=== PATIENT | female | born 1955 | race Caucasian/White ===

== ENCOUNTER → 2017-03-18 | Outpatient (CLI) | payer BC | END | disposition home or self-care (01) | LOC: GMAL 10:36 | PROVIDERS: ATTEND Family Medicine | DX: E55.9 Vitamin D deficiency, unspecified (principal) ==

== ENCOUNTER → 2017-09-17 | Outpatient (CLI) | payer BC | LOC: GMAL 13:07 | PROVIDERS: ATTEND Family Medicine | DX: R53.82 Chronic fatigue, unspecified (principal); D51.3 Other dietary vitamin B12 deficiency anemia; I10 Essential (primary) hypertension; E11.9 Type 2 diabetes mellitus without complications; E78.4 Other hyperlipidemia ==

== ENCOUNTER → 2017-09-19 | Outpatient (CLI) | payer BC, OTHER ==
--- NOTE | 2017-09-21 10:45 | MRI ---
EXAM DESCRIPTION: Cervical Spine: MRI. CLINICAL HISTORY: CERVICAL RADICULOPATHY COMPARISON: Cervical TECHNIQUE: Multiplanar MRI, multiple sequences, non-contrast High-field. FINDINGS: C3-4: Minimal disc desiccation. Posterior midline 2 mm disc bulge abutting the cord. Mild canal narrowing. Bilateral neural foraminal are patent. Bilateral facets are negative. C4-5: Disc desiccation and moderate disc space loss. Anterior disc bulging and endplate ridging. Modic type II endplate reactive changes. Anterior disc bulge and endplate ridging. Posterior broad-based disc osteophyte complex bulge 3 mm abutting the cord. Bilateral uncinate spurs narrowing the neural foramina. Minimal arthrosis left facet. C5-6: Disc desiccation and anterior bulging and endplate ridging. Posterior broad-based 3 mm disc osteophyte complex bulge abutting the cord. Borderline stenosis right neural foramina. Moderate narrowing of the left neural foramina. Bilateral mild facet arthrosis. C6-7: Disc desiccation and minimal disc space loss. Anterior disc bulging and endplate ridging. Posterior disc osteophyte complex bulge 2 mm abutting the cord. Moderate canal narrowing. Anterior Modic type II endplate reactive changes. Mild right neural foraminal narrowing. Normal signal in the remaining discs with no bulging. Disc spaces preserved. Canal and neural foramina are patent. Facets are unremarkable at C2-3 and C7-T1. Minimal bilateral arthrosis at T1-2. No scoliosis. Spine is lordotic.. No cord compression or cord edema. Atlantoaxial joint is unremarkable. Base of the cerebellar tonsils is above the foramen magnum. Paravertebral soft tissues negative. Left lobe of the thyroid gland is prominent but no definite nodule.. Vertebral bodies are not compressed at any level. Normal marrow signal in the remaining vertebral bodies and the posterior elements. IMPRESSION: 1. Posterior midline bulge of the desiccated C3-4 disc. 2. Posterior broad-based C4-5 disc osteophyte complex bulge abutting the cord. Moderate spondylosis. 3. Posterior broad-based C5-6 disc osteophyte, complex bulge abutting the cord. Borderline stenosis right neural foramina. Correlate for right C6 radiculopathy. 4. Posterior disc osteophyte complex bulge C6-7 disc abutting the cord. Anterior moderate spondylosis. Electronically signed by: Joseph Cao MD 09/21/2017 10:44 AM CDT
== END ==
LOC: MRI 08:59
PROVIDERS: ATTEND Family Medicine
DX: M50.11 Cervical disc disorder with radiculopathy, high cervical region (principal); M50.121 Cervical disc disorder at C4-C5 level with radiculopathy; M50.122 Cervical disc disorder at C5-C6 level with radiculopathy; M50.123 Cervical disc disorder at C6-C7 level with radiculopathy

== ENCOUNTER 2017-12-14 20:00 | Observation (INO) | payer BC ==
--- NOTE | 2017-12-14 20:18 | ED.PDOC ---
History of Present Illness - General Chief Complaint: Blood Pressure Problem Stated Complaint: high blood pressure reading at home Time Seen by Provider: 12/14/17 20:11 Source: patient Exam Limitations: no limitations - History of Present Illness Initial Comments: Roman Aguilar 62 y/o female stated that she had been having blurry vision since November-seems like its warp wears corrective glasses but vision gets more blurry and also seeing double and daughter noted that sometimes cross eyed 2 x today and felt that getting worse more frequent and also noted blood pressure been elevated.Has history of DM2 and HTN. No slurred speech or dysarthria,weakness of extremities. Timing/Duration: intermittent, other - see hpi Severity: moderate Improving Factors: nothing Worsening Factors: nothing Associated Symptoms: other - diizy episode mild Allergies/Adverse Reactions: Allergies NO KNOWN ALLERGY Allergy (Verified 12/14/17 20:19) Home Medications: Ambulatory Orders Empagliflozin [Jardiance] 12/14/17 Gemfibrozil [Lopid] 12/14/17 Insulin Aspart [Novolog Flexpen] 12/14/17 Insulin Glargine [Lantus Solostar] 12/14/17 Lisinopril [Lisinopril] 12/14/17 Nebivolol HCl [Bystolic] 10 mg PO 12/14/17 Rosuvastatin Calcium [Rosuvastatin Calcium] 12/14/17 Saxagliptin HCl [Onglyza] 12/14/17 hydroCHLOROthiazide [Hydrochlorothiazide] 12/14/17 Review of Systems - Review of Systems Constitutional: States: no symptoms reported EENTM: States: see HPI Respiratory: States: no symptoms reported Cardiology: States: no symptoms reported Gastrointestinal/Abdominal: States: no symptoms reported Genitourinary: States: no symptoms reported Musculoskeletal: States: no symptoms reported Skin: States: no symptoms reported Neurological: States: see HPI Endocrine: States: see HPI Hematologic/Lymphatic: States: no symptoms reported Past Medical History (General) - Patient Medical History Hx Hypertension: Yes Hx Thyroid Disease: Yes Hx Diabetes: Yes Surgical History: other - hysterectomy,thyroidectomy - Social History Hx Alcohol Use: No Hx Substance Use: No Hx Depression: No Hx Physical Abuse: No Hx Emotional Abuse: No - Activities of Daily Living Group Home/Assisted Living (if applicable):: [facility] Family Medical History - Family History Father Hx Cardiac Disease: Yes - dad/brother had UT in their 50's Mother Hx Cardiac Disease: Yes Hx Family Diabetes: Yes Physical Exam - Physical Exam General Appearance: Alert, Comfortable, No apparent distress Eye Exam: bilateral normal Ears, Nose, Throat: hearing grossly normal, normal ENT inspection, normal pharynx Neck: non-tender, full range of motion, supple, normal inspection Respiratory: chest non-tender, lungs clear, normal breath sounds, no respiratory distress Cardiovascular/Chest: normal peripheral pulses, regular rate, rhythm, no gallop , no murmur Peripheral Pulses: radial,right: 2+, radial,left: 2+ Gastrointestinal/Abdominal: normal bowel sounds, non tender, soft, no organomegaly Back Exam: no CVA tenderness, no vertebral tenderness Extremity: normal range of motion, non-tender, no pedal edema, no calf tenderness Neurologic: no motor/sensory deficits, alert, oriented x 3, other - pronator drift negative Skin Exam: normal color, warm/dry Progress - Progress Progress: 12/14/17 20:30 Vital Signs - 8 hr 12/14/17 20:08 Temperature 98.4 F Pulse Rate [ 82 monitor] Respiratory 18 Rate Blood Pressure 164/104 [Left Arm] O2 Sat by Pulse 99 Oximetry - Results/Orders Results/Orders: 12/14/17 20:18 IV Care:Saline Lock per Protoc QSHIFT 12/14/17 20:30 EKG STAT 12/14/17 20:51 URINE CULTURE W/COLONY COUNT Stat Laboratory Results - last 24 hr 12/14/17 12/14/17 20:18 20:51 WBC 7.4 RBC 4.38 Hgb 13.7 Hct 38.9 MCV 88.9 MCH 31.3 H MCHC 35.2 RDW 13.9 Plt Count 244 MPV 8.6 Absolute Neuts (auto) 3.00 Absolute Lymphs (auto) 3.50 H Absolute Monos (auto) 0.40 Absolute Eos (auto) 0.40 Absolute Basos (auto) 0.10 Neutrophils % 40.1 L Lymphocytes % 46.7 Monocytes % 6.0 Eosinophils % 5.5 H Basophils % 1.7 PT 9.3 INR 0.93 PTT (SP) 23.9 Sodium 140 Potassium 2.9 L Chloride 103 Carbon Dioxide 25 Anion Gap 14.9 BUN 28 H Creatinine 1.63 H BUN/Creatinine Ratio 17.2 Random Glucose 193 H Serum Osmolality 290.1 Calcium 10.5 H Magnesium 2.1 Total Bilirubin 0.5 Direct Bilirubin < 0.1 Indirect Bilirubin 0.4 AST 24 ALT 23 Alkaline Phosphatase 67 Creatine Kinase 71 CK-MB (CK-2) 1.4 CK-MB (CK-2) % Not Reportable Troponin I < 0.02 Serum Total Protein 7.8 Albumin 4.3 Urine Color Yellow Urine Appearance Clear Urine pH 5.5 Ur Specific [place] 1.020 Urine Protein Negative Urine Glucose (UA) >=1000 H Urine Ketones Negative Urine Blood Negative Urine Nitrite Negative Urine Bilirubin Negative Urine Urobilinogen 0.2 Ur Leukocyte Esterase Negative Urine RBC 0-1 Urine WBC 30-40 H Ur Epithelial Cells 0-1 Urine Bacteria Rare - EKG/XRAY/CT EKG: Sinus, no ST T wave changes Comments: HR 87 XRAY: chest - no acute abnormalities CT Ordered: Yes - no acute abnormalities Departure - Departure Clinical Impression: Blurring of vision, Double vision with both eyes open, Hypokalemia, Renal insufficiency Diabetes Qualifiers: Diabetes mellitus type: type 2 Diabetes mellitus ocean transportation intermediary insulin use: unspecified ocean transportation intermediary insulin use status Diabetes mellitus complication status: with unspecified complications Qualified Code(s): E11.8 - Type 2 diabetes mellitus with unspecified complications Time of Disposition: 22:56 Disposition: Admit Patient Condition: Fair Departure Forms: Patient Portal Self Enrollment Referrals: Eric Fuller III, MD [Primary Care Provider] - 1-2 Weeks Home Medications: Ambulatory Orders Empagliflozin [Jardiance] 12/14/17 Gemfibrozil [Lopid] 12/14/17 Insulin Aspart [Novolog Flexpen] 12/14/17 Insulin Glargine [Lantus Solostar] 12/14/17 Lisinopril [Lisinopril] 12/14/17 Nebivolol HCl [Bystolic] 10 mg PO 12/14/17 Rosuvastatin Calcium [Rosuvastatin Calcium] 12/14/17 Saxagliptin HCl [Onglyza] 12/14/17 hydroCHLOROthiazide [Hydrochlorothiazide] 12/14/17 Decision To Admit - Decistion To Admit Decision to Admit Reason: Admit from ER Decision to Admit Date: 12/14/17 - D/W Martin Welsh ,ANP/Hospitalist Decision to Admit Time: 22:56
[2017-12-14] MEDS ORDERED: ASPIRIN TABLET 325 MG TAB PO ONE (20:28)
[2017-12-14] MEDS: LABETALOL INJ 5 MG/ML VIAL IV ONE ×2 (20:35→20:47)
--- NOTE | 2017-12-14 21:01 | RAD ---
EXAM DESCRIPTION: Chest,1 View CLINICAL HISTORY: 62 years Female, hbp COMPARISON: None FINDINGS: No consolidation. No pneumothorax. No significant pleural effusion. Small linear density in the left lower lung zone is suggestive of atelectasis or scarring. Cardiomediastinal silhouette is unremarkable. Osseous structures are unremarkable. IMPRESSION: No acute findings. Electronically signed by: Von Spicer MD 12/14/2017 9:00 PM CDT
--- NOTE | 2017-12-14 21:05 | CT ---
EXAM DESCRIPTION: Head CLINICAL HISTORY: double vision COMPARISON: None Available. TECHNIQUE: Multiple helical axial tomographic images were obtained of the head without intravenous contrast. This exam was performed according to our departmental dose-optimization program, which includes automated exposure control, adjustment of the mA and/or kV according to patient size and/or use of iterative reconstruction technique. FINDINGS: There is no acute intracranial hemorrhage. No mass. No midline shift. No ventriculomegaly. Lopez-white matter differentiation is maintained. Paranasal sinuses are clear. Mastoid air cells and middle ear spaces are clear. Orbits and orbital contents are unremarkable. Osseous structures are unremarkable. Surrounding soft tissues are unremarkable. IMPRESSION: No acute intracranial process. Electronically signed by: Von Spicer MD 12/14/2017 9:03 PM CDT
[2017-12-14] MEDS ORDERED: DEXTROSE 50% 25 GM/50 ML SYG IV PRN (23:21)
[2017-12-14] MEDS ORDERED: SODIUM CHLORIDE 0.9% (FLUSH) 10 ML SYG IV PRN (23:21)
[2017-12-14] MEDS ORDERED: GLUCAGON INJ 1 MG VIAL SUBCU PRN (23:21)
[2017-12-14] MEDS ORDERED: ACETAMINOPHEN 325 MG TAB PO PRN (23:21)
[2017-12-14] MEDS ORDERED: POTASSIUM CHLORIDE 20 MEQ TAB PO ONE (23:26)
[2017-12-14] MEDS ORDERED: IV SET AND CAP CHANGE INJ INJ SCH (23:30)
[2017-12-14] MEDS ORDERED: cefTRIAXone SODIUM 1 GM in SODIUM CHL 0.9% 50ML MIN-BAG+ 50 ML IVPB SCH (23:30)
[2017-12-14] MEDS ORDERED: SODIUM CHL 0.9% 50ML MIN-BAG+ 50 ML IVPB ONE (23:50)
[2017-12-14] MEDS ORDERED: cefTRIAXone SODIUM 1 GM VIAL ONE (23:50)
[2017-12-14] MEDS: KCL 20MEQ/0.45% NS 1,000 ML IVS PRN (23:56)
[2017-12-15] MEDS ORDERED: INSULIN LISPRO 100 UNITS/ML PEN SUBCU SCH (07:00)
[2017-12-15] MEDS: KCL 20MEQ/0.45% NS 1,000 ML IVS PRN (09:50)
[2017-12-15] MEDS ORDERED: hydroCHLOROthiazide 12.5 MG CAP PO SCH (10:30)
[2017-12-15] MEDS ORDERED: LISINOPRIL 10 MG TAB PO SCH (10:30)
[2017-12-15] MEDS ORDERED: NEBIVOLOL 2.5 MG TAB PO SCH (10:30)
--- NOTE | 2017-12-15 16:18 | SSS ---
SUPERVISING PHYSICIAN: Uri Drake MD DATE OF ADMISSION: 12/14/17 DATE OF DISCHARGE: 12/15/17 CHIEF COMPLAINT: High blood pressure, double vision. HISTORY OF PRESENT ILLNESS: Ms. Aguilar is a 62-year-old, female patient who presented to the Emergency Department late last night complaining that she had been having some blurry vision since , 12/11/17, that seems to worse with her corrective lenses currently and she is also seeing double vision more in the horizontal position. Her daughter also noted that at some point yesterday, she was "cross-eyed" several times. The patient felt like she was getting worse with the double vision being more frequent. It was also noted that the patient does have elevated blood pressure at home. She does have a history of diabetes mellitus, type 2, and hypertension. On Emergency Room admission, she was having no slurred speech, dysarthria or weakness of extremities. Her initial blood pressure was 164/104 with heart rate 82. She was afebrile, and therefore 99% on room air. CT of the head was completed and per radiologic interpretation, there were no acute intracranial processes. Laboratory studies showed a normal white count. Chemistries showed just a mildly low potassium of 2.9 with a bumped creatinine of 1.63. All other liver functions and cardiac enzymes were all negative. Glucose 193 on admission. Urinalysis did show greater than 1000 of glucose with microscopic showing 30 to 40 WBCs, no epithelials and rare bacteria. Dr. Amor, Emergency Room physician, requested the patient be placed in observation overnight for close monitoring. It was noted that the patient was having no lateralizing or other symptoms indicating she was having an acute stroke, but given that she was having double vision, which is new, admission for observation was at least warranted with consideration for further testing in the morning. The patient was placed in observation in stable condition. PAST MEDICAL HISTORY: 1. Hyperlipidemia. 2. Hypertension. 3. Mild renal insufficiency with baseline creatinine of 1.47. 4. 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 5. Strong family history of coronary artery disease. PAST SURGICAL HISTORY: 1. Hysterectomy in 1994, partial. 2. Tubal ligation in 1990. 3. Bladder suspension in 1994. 4. Bladder repair in 1996. 5. Bilateral salpingo-oophorectomy and lysis of adhesions in 2000. 6. Thyroid biopsy in 2007. HOME MEDICATIONS: 1. Lantus 30 units at bedtime. 2. Onglyza 5 mg daily. 3. Bystolic 10 mg daily. 4. Jardiance 25 mg daily. 5. Lisinopril 20 mg b.i.d. 6. Lopid 600 mg b.i.d. 7. Rosuvastatin 40 mg at bedtime. 8. Hydrochlorothiazide 12.5 mg daily. 9. NovoLog insulin sliding scale at a.c. and h.s. ALLERGIES: AMLODIPINE, BYETTA, VICTOZA. FAMILY HISTORY: Father at age 51 secondary to myocardial infarction and complications of diabetes. Mother is healthy. She has one brother who is at age 35 secondary to myocardial infarction. Maternal grandmother in her 80s secondary to CVA and colon cancer. 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 She is . She has never smoked. She drinks alcohol very infrequently. REVIEW OF SYSTEMS: CONSTITUTIONAL: Denies any fevers, chills, body aches or unintentional weight loss. HEENT: As noted in history of present illness, horizontal double vision with some blurred vision. No earaches, sore throats, headaches. RESPIRATORY: Denies coughing, wheezing, shortness of breath, exertional dyspnea. CARDIOVASCULAR: Denies chest pain, palpitations or edema. GASTROINTESTINAL: Denies nausea or vomiting, diarrhea, constipation or abdominal pain. GENITOURINARY: Denies dysuria, hematuria, polyuria or other urinary symptoms. NEUROLOGIC: As noted in history of present illness, binocular horizontal diplopia. No reported vision loss. No lateralizing symptoms, no focalizing symptoms. No seizure activity, no ataxia, no dizziness. PHYSICAL EXAMINATION: VITAL SIGNS: Initially in the Emergency Department, blood pressure was 164/104, heart rate 82. Afebrile at 98.4. Shortly after admission to the Emergency Department without any intervention or medications, blood pressure returned to normal at 128/69 with heart rate 73. Saturation 99% on room air. Admission weight 83.5 kg. GENERAL: On admission to the Medical/Surgical Floor, the patient appeared to be in no acute distress. She was resting comfortably and alert. HEENT: Pupils equal and reactive. Tympanic membranes clear bilaterally. Oropharynx is pink, moist without any lesions. NECK: Supple, nontender with full range of motion. No jugular venous distention noted. RESPIRATORY: Lungs clear to auscultation bilaterally without any rhonchi, wheezes, or rales. CARDIOVASCULAR: Regular rate and rhythm without any appreciable murmurs, gallops, or rubs. ABDOMEN: Soft, nontender. Positive bowel sounds. EXTREMITIES: There is no cyanosis, clubbing or edema. NEUROLOGIC: No obvious abnormalities noted on assessment of cranial nerves II- XII. Extraocular movements appear to be intact. No notable nystagmus. Detrusor within normal limits. There was no pronator drift. The patient is alert and oriented times three. No notable ptosis. LABORATORY: CBC showed white count 7,400, hemoglobin 13.7, hematocrit 38.9, platelet count 244,000. Differential without left shift. Coagulation studies showed normal PT and PTT. Chemistries showed a mildly low potassium at 2.9. BUN 28, creatinine 1.63. Glucose 193, magnesium 2.1, calcium 10.5. Liver functions all within normal limits. Troponin less than 0.02. Laboratory on discharge showed normal electrolytes with potassium 3.7, calcium 9.6, blood sugars between 122 and 150. Urinalysis on admission showed greater than 1000 glucose with microscopic showing 30 to 40 WBCs, 0 to 1 epithelials with rate bacteria. MICROBIOLOGY: Blood cultures pending. RADIOLOGY: Chest x-ray prior to admission the Emergency Department, single- view chest, per radiologic interpretation showed no acute findings. CT of the head without contrast per radiologic interpretation showed no intracranial hemorrhages, no masses, no midline shift, no ventriculomegaly, nava-white matter differentiation was maintained. Nasal sinuses were clear. Mastoid cells and air spaces were clear. Orbits and orbital contents were unremarkable. Osseous structures were unremarkable. Surrounding soft tissues were unremarkable. ASSESSMENT: 1. 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 2. Hypertension as noted on admission, possibly due to #1 complicated by diabetic microvascular ischemia which was transient resulting in worsening of the diplopia. 3. Diabetes mellitus, type 2, diagnosed in 2001 with complications including retinopathies and occasional microaneurysms and dot-blot hemorrhages. 4. Hyperlipidemia on statins. 5. Hypertension, fairly well controlled although some mild hypertension noted on admission, possibly contributed to worsening of #1. 6. Mild renal insufficiency with baseline creatinine 1.47, probably mild prerenal azotemia Dyazide diuretic. 7. Electrolyte imbalance with a mild hypokalemia secondary to chronic Dyazide diuretic usage. 8. Acute cystitis with cultures pending and the patient on p.o. antibiotics at discharge. HOSPITAL COURSE: Ms. Aguilar was placed in observation from the Emergency Room for further evaluation and neurological evaluation. She had no reported worsening of her symptoms. Her neurological exams were unchanged from admission. She had good control of her blood pressure. Blood pressure at discharge was 128/69 with heart rate 73, respiratory rate 18, saturation 99% on room air, temperature 98.4. She had no further complaints and after neurologic exam and further discussion with the patient, arrangements were made after talking to Dr. Awad, her draw end hand, to discharge and have referral this afternoon for close followup for further evaluation of her symptoms. She was started on Rocephin for questionable underlying urinary tract infection although she was asymptomatic. Cultures were pending at time of discharge. PLAN: The patient was discharged to have close clinical followup with Dr. Awad at [facility] today. Her appointment was on same day of discharge at 1300. She was to followup with Dr. Fuller later next week as Dr. Fuller is out of the office this week. She was encouraged to continue with her medications, monitor her blood sugar closely and blood pressures as needed. No new medications were prescribed at discharge. She was to resume her home medications as prior to admission. I did discuss with her possibly needing further neurological imaging such as MRI or possibly carotid studies. However, after discussion with Dr. Awad, plan at discharge is to followup with ophthalmology and base additional testing on those findings. I did talk to Dr. Awad over the phone and discussed the patient's presentation and current clinical condition and he agreed to see the patient in followup after discharge. Diet at discharge was diabetic diet. Activity to increase as tolerated. New medication prescribed at discharge was antibiotic to include cefepime 500 mg b.i.d. for 7 days. No additional medications were prescribed. All other medications were resumed as prior to hospitalization. Condition at discharge was stable and improved. She is to return to the hospital should she have any concerning symptoms or worsening of her symptoms. #[id number] [facility]
[2017-12-15 17:47] VITALS: BP 127/79; TEMP 97.7; O2SAT 96
[2017-12-15] MEDS ORDERED: INSULIN DETEMIR 100 UNITS/ML PEN SUBCU SCH (21:00)
[2017-12-15] MEDS ORDERED: GEMFIBROZIL 600 MG TAB PO SCH (21:00)
[2017-12-15] MEDS ORDERED: ATORVASTATIN 20 MG TAB PO SCH (21:00)
[2017-12-16] MEDS ORDERED: NON-FORMULARY MEDICATION 1 EA MIS (Empagliflozin [Jardiance] 25 MG) PO SCH (09:00)
[2017-12-16] MEDS ORDERED: SAXAGLIPTIN HCL 5 MG PO SCH (09:00)
== END 2017-12-15 10:49 | disposition home or self-care (01) ==
LOC: ER 20:00 → MS 23:09
PROVIDERS: ADMIT Nurse Practitioner Family; ATTEND Nurse Practitioner Family
DX: H53.2 Diplopia (principal); I10 Essential (primary) hypertension; E11.65 Type 2 diabetes mellitus with hyperglycemia; E87.6 Hypokalemia; E87.8 Other disorders of electrolyte and fluid balance, not elsewhere classified; N30.00 Acute cystitis without hematuria; N28.9 Disorder of kidney and ureter, unspecified; E78.5 Hyperlipidemia, unspecified; E11.319 Type 2 diabetes mellitus with unspecified diabetic retinopathy without macular edema; E11.59 Type 2 diabetes mellitus with other circulatory complications; Z79.4 Long term (current) use of insulin; Z79.899 Other long term (current) drug therapy; Z88.8 Allergy status to other drugs, medicaments and biological substances; Z82.49 Family history of ischemic heart disease and other diseases of the circulatory system
CPT/HCPCS: 96365; 96366; 96367; J0696; J3480; J7050; 80048 ×2; 87086; 82948 ×2; 36415; 82550; 82553; 85025; 85730; 85610; 84484; 81001; 80076; 36416 ×2; 71045; 70450; 94760 ×2; 99285; 93005; G0378

== ENCOUNTER → 2018-02-27 | Outpatient (CLI) | payer BC | LOC: LAB.O 14:51 | PROVIDERS: ATTEND Family Medicine | DX: H49.20 Sixth [abducent] nerve palsy, unspecified eye (principal); R53.83 Other fatigue; M31.6 Other giant cell arteritis; E05.00 Thyrotoxicosis with diffuse goiter without thyrotoxic crisis or storm ==

== ENCOUNTER → 2018-03-04 | Outpatient (CLI) | payer BC ==
--- NOTE | 2018-03-05 11:02 | MRI ---
CLINICAL HISTORY: 62 years Female, dizziness and blurred vision. COMPARISON: None available. TECHNIQUE: Multiplanar multiecho imaging of the brain and orbits was performed before and after the administration of intravenous contrast. FINDINGS: No acute major vascular territorial infarct or acute intraparenchymal hemorrhage. No intra-axial or extra-axial fluid collections are identified. No space-occupying lesion is identified. The cisterns and ventricles appear normal in caliber. The sella and suprasellar regions demonstrate no gross abnormality. The structures of the posterior fossa are intact. The visualized paranasal sinuses and mastoid air cells appear normal. The globes are intact bilaterally. Review of the bones demonstrates no gross abnormality. IMPRESSION: Normal MRI of the brain and orbits. Electronically signed by: Maria Elena Roman MD 03/05/2018 11:01 AM CDT
== END ==
LOC: MRI 09:59
PROVIDERS: ATTEND Family Medicine
DX: H49.20 Sixth [abducent] nerve palsy, unspecified eye (principal); R53.83 Other fatigue; M31.6 Other giant cell arteritis; E05.00 Thyrotoxicosis with diffuse goiter without thyrotoxic crisis or storm

== ENCOUNTER → 2019-04-14 | Outpatient (CLI) | payer BC | END | disposition home or self-care (01) | LOC: GMAL 10:39 | PROVIDERS: ATTEND Family Medicine | DX: E03.8 Other specified hypothyroidism (principal); I10 Essential (primary) hypertension; E11.9 Type 2 diabetes mellitus without complications ==

== ENCOUNTER → 2019-10-13 | Outpatient (CLI) | payer MEDICARE, OTHER | LOC: GMAL 14:35 | PROVIDERS: ATTEND Family Medicine | DX: M10.9 Gout, unspecified (principal) ==